=== PATIENT | male | born 1965 | race Caucasian/White ===

== ENCOUNTER 2021-09-08 09:08 | Outpatient (CLI) | payer OTHER ==
[2021-09-08 18:42] LABS: SARS-CoV-2 PCR by NAA Not Detected (NotDetected)
== END 2021-09-08 09:09 | disposition home or self-care (01) ==
LOC: CSHLAB 09:08
PROVIDERS: ATTEND Surgery
DX: Z01.818 Encounter for other preprocedural examination (principal); Z20.822 Contact with and (suspected) exposure to COVID-19; K40.20 Bilateral inguinal hernia, without obstruction or gangrene, not specified as recurrent
CPT/HCPCS: 93005; 93010; U0003; U0005

== ENCOUNTER 2021-09-10 06:06 | Day surgery (SDC) | payer OTHER ==
[2021-09-09 09:12] VITALS: BMI 22.7
[2021-09-10] MEDS ORDERED: EPINEPHrine 1 MG/ML AMP ONE (06:33)
[2021-09-10] MEDS ORDERED: Bupivacaine PF 0.5% 30 ML VIAL ONE (06:34)
[2021-09-10] MEDS ORDERED: SUGAMMADEX SODIUM 200 MG/2 ML VIAL ONE (06:47)
[2021-09-10] MEDS ORDERED: HYDROmorphone 0.5 MG/0.5 ML SYRINGE ONE (06:48)
[2021-09-10] MEDS ORDERED: Glycopyrrolate 0.2 MG/ML 5 ML SYRINGE ONE (06:50)
[2021-09-10] MEDS ORDERED: Ondansetron PF 4 MG/2 ML Vial ONE (06:50)
[2021-09-10] MEDS ORDERED: Dexamethasone 20 MG/5 ML VIAL ONE (06:50)
[2021-09-10] MEDS ORDERED: Rocuronium Bromide 10 MG/ML (10ML VIAL) ONE (06:50)
[2021-09-10] MEDS ORDERED: Fentanyl 100 MCG/2 ML VIAL ONE (06:51)
[2021-09-10] MEDS ORDERED: PROPOFOL 20 ML ONE (06:51)
[2021-09-10] MEDS ORDERED: Lidocaine 2% PF 5 ML VIAL ONE (06:51)
[2021-09-10] MEDS ORDERED: Midazolam HCl 2 mg/2 ml Vial ONE (06:51)
[2021-09-10] MEDS ORDERED: Ketorolac Tromethamine 30 MG/ML VIAL ONE (06:57)
[2021-09-10] MEDS ORDERED: ceFAZolin 2 GM/Dextrose 50 ML IVPB ONE (07:07)
[2021-09-10] MEDS ORDERED: PHENYLEPHRINE-NS 100 MCG/ML 10 ML SYRINGE ONE (07:44)
[2021-09-10] MEDS ORDERED: HYDROcodone/Acetaminophen 5/325 mg Tablet PO PRN ×2 (08:59)
[2021-09-10] MEDS ORDERED: Acetaminophen 325 MG TAB PO PRN (08:59)
== END 2021-09-10 10:30 | disposition home or self-care (01) ==
LOC: CSHSDC 06:06
PROVIDERS: ATTEND Surgery
PROC: 0YUA4JZ Supplement Bilateral Inguinal Region with Synthetic Substitute, Percutaneous Endoscopic Approach (ICD-10-PCS; principal; 2021-09-10)
DX: K40.20 Bilateral inguinal hernia, without obstruction or gangrene, not specified as recurrent (principal); I10 Essential (primary) hypertension; K21.9 Gastro-esophageal reflux disease without esophagitis; F17.210 Nicotine dependence, cigarettes, uncomplicated
CPT/HCPCS: C1713; J0171; J0690; J1100; J1170; J1885; J2001; J2250; J2405; J2704; J3010; S0020